=== PATIENT | female | born 1950 | race Caucasian/White ===

== ENCOUNTER 2019-01-15 04:41 | Observation (INO) | payer MEDICARE, OTHER ==
[2019-01-15] MEDS ORDERED: Sodium Chloride 0.9% 10 ML Syringe FLUSH PRN (04:56)
[2019-01-15] MEDS ORDERED: Sodium Chloride 0.9% 2.5 ML Syringe FLUSH PRN (04:56)
[2019-01-15] MEDS ORDERED: Aspirin 81 MG Tab.Chew PO ONE (05:02)
--- NOTE | 2019-01-15 05:07 | EDM.PDOC ---
ED HPI GENERAL MEDICAL PROBLEM - General Chief Complaint: Chest Pain Stated Complaint: CHEST PAIN Time Seen by Provider: 01/15/19 04:55 - History of Present Illness INITIAL COMMENTS - FREE TEXT/NARRATIVE: HISTORY AND PHYSICAL: History of present illness: The patient is a 68-year-old female with no significant past medical history who presents with complaints of episodic sternal chest pain and discomfort for which she has had many months and has been following with a physical therapist at [facility] and receiving treatment there for noncardiac chest pain/ costochondral pain. The patient says that she gets this discomfort quite frequently and she usually just works with the physical therapist and treated symptomatically but this morning he felt somewhat different and radiated to her left arm and her back. The patient says she has a normal day yesterday and has had no upper respiratory symptoms or GI symptoms and slept fine. She will this morning and felt very good and started having the discomfort and she thought it was just her typical pain. It then seemed to be very different in character with the radiation but there was no diaphoresis nausea vomiting abdominal pain or shortness of breath. She did not do anything significant yesterday as far stressful activities or have any recent trauma. The patient did not take any medications prior to coming here. The patient has no significant cardiac history and has no social history. The patient did have a workup including a stress test in 2013 which revealed no evidence of any acute ischemia and ejection fraction of 81%. She has not been evaluated from a cardiac standpoint since that time. She has no leg pain or swelling. She is currently describing her pain as a pressure-like sensation and rates it as a 7/10 Review of systems: As per history of present illness and below otherwise all systems reviewed and negative. Past medical history: As per history of present illness and as reviewed below otherwise noncontributory. Surgical history: As per history of present illness and as reviewed below otherwise noncontributory. Social history: No reported history of drug or alcohol abuse. Family history: As per history of present illness and as reviewed below otherwise noncontributory. Physical exam: General: Well-developed well-nourished thin female who is nontoxic and vital signs are noted by me HEENT: Atraumatic, normocephalic, negative for conjunctival pallor or scleral icterus, mucous membranes moist, throat clear, neck supple, nontender, trachea midline. Lungs: Clear to auscultation, breath sounds equal bilaterally, chest wall near the sternum has some mild discomfort but the patient says that that is not the discomfort she is experiencing but that is her more chronic level of chest pain. There are no defects or deformities appreciated Heart: S1S2, regular, negative for clicks, rubs, or JVD. Abdomen: Soft, nondistended, nontender. Negative for masses or hepatosplenomegaly. NABS Pelvis: Stable nontender. Genitourinary: Deferred. Rectal: Deferred. Extremities: Atraumatic, negative for cords or calf pain. Neurovascular unremarkable. No pedal edema or leg asymmetry Neuro: Awake, alert, oriented. Cranial nerves II through XII unremarkable. Cerebellum unremarkable. Motor and sensory unremarkable throughout. Exam nonfocal. Diagnostics: EKG chest x-ray CBC CMP INR troponin amylase and lipase Therapeutics: IV O2 monitor IV fluids aspirin nitroglycerin sublingual Toradol After the patient received 2 subungual nitroglycerin she says that the pain actually feels worse and she would like to not receive any more nitroglycerin or Nitropaste. Her is at bedside who had an admission here for cardiac chest pain with the first 2 enzymes being negative and then his third bumped and had a be transferred. He seemed to both be very knowledgeable about the troponins. She and her are aware of her completely normal tests including the troponin. I've offered her morphine and she declines that she will take some Toradol. She is agreeable to observation admission though. 0547: Case was discussed with Dr. Cameron who is aware of the course of events here and the care plan instituted and agrees to observation admission. Impression: chest pain rule out ACS Definitive disposition and diagnosis as appropriate pending reevaluation and review of above. Chest Pain Score (Numeric/FACES): 4 - Related Data Allergies Allergy/AdvReac Type Severity Reaction Status Date / Time Sulfa (Sulfonamide Allergy Cannot Verified 01/15/19 04:59 Antibiotics) Remember Home Meds: Home Meds . [No Known Home Meds] 01/15/19 [History] Past Medical History - Past Health History Medical/Surgical History: Denies Medical/Surgical History - Infectious Disease History Infectious Disease History: Reports: Chicken Pox, Measles, Mumps - Past Surgical History Musculoskeletal Surgical History: Reports: Arthroscopic Knee Social & Family History - Tobacco Use Smoking Status *Q: Never Smoker - Caffeine Use Caffeine Use: Reports: None - Recreational Drug Use Recreational Drug Use: No ED ROS GENERAL - Review of Systems Review Of Systems: ROS reveals no pertinent complaints other than HPI. ED EXAM, GENERAL - Physical Exam Exam: See Below (See dictation) Course - Vital Signs Last Recorded V/S: Last Vital Signs Temp 35.8 C 01/15/19 04:55 Pulse 65 01/15/19 04:55 Resp 9 L 01/15/19 05:20 BP 108/75 01/15/19 05:25 Pulse Ox 97 01/15/19 05:20 - Orders/Labs/Meds Orders: Active Orders 24 hr Category Date Time Status Patient Status [ADT] Stat ADT 01/15/19 05:48 Ordered Cardiac Monitoring [RC] . DIRECTED Care 01/15/19 04:56 Active EKG Documentation Completion [RC] STAT Care 01/15/19 04:56 Active Oxygen Therapy, ED [RC] ASDIRECTED Care 01/15/19 04:56 Active Pulse Oximetry [RC] ASDIRECTED Care 01/15/19 04:56 Active Nitroglycerin [Nitrostat] Med 01/15/19 05:02 Active 0.4 mg SL Q5M PRN Sodium Chloride 0.9% [Normal Saline] 1,000 ml Med 01/15/19 05:15 Active IV ASDIRECTED Sodium Chloride 0.9% [Saline Flush] Med 01/15/19 04:56 Active 10 ml FLUSH ASDIRECTED PRN Sodium Chloride 0.9% [Saline Flush] Med 01/15/19 04:56 Active 2.5 ml FLUSH ASDIRECTED PRN Saline Lock Insert [OM.PC] Stat Oth 01/15/19 04:56 Ordered Medication Orders Sodium Chloride (Normal Saline) 1,000 mls @ 50 mls/hr IV ASDIRECTED EVER Last Admin: 01/15/19 05:10 Dose: 50 mls/hr Nitroglycerin (Nitrostat) 0.4 mg SL Q5M PRN PRN Reason: Chest Pain Last Admin: 01/15/19 05:25 Dose: 0.4 mg Admin: 01/15/19 05:12 Dose: 0.4 mg Sodium Chloride (Saline Flush) 10 ml FLUSH ASDIRECTED PRN PRN Reason: Keep Vein Open Last Admin: 01/15/19 05:11 Dose: 10 ml Sodium Chloride (Saline Flush) 2.5 ml FLUSH ASDIRECTED PRN PRN Reason: Keep Vein Open Last Admin: 01/15/19 05:11 Dose: 2.5 ml Labs: Laboratory Tests 01/15/19 01/15/19 01/15/19 Range/Units 04:45 04:45 04:45 WBC 4.50 (4.0-11.0) K/uL RBC 4.76 (4.30-5.90) M/uL Hgb 15.3 (12.0-16.0) g/dL Hct 44.8 (36.0-46.0) % MCV 94.1 (80.0-98.0) fL MCH 32.1 H (27.0-32.0) pg MCHC 34.2 (31.0-37.0) g/dL RDW Std Deviation 48.8 (28.0-62.0) fl RDW Coeff of [place] 14 (11.0-15.0) % Plt Count 180 (150-400) K/uL MPV 9.70 (7.40-12.00) fL Neut % (Auto) 44.6 L (48.0-80.0) % Lymph % (Auto) 42.4 H (16.0-40.0) % [place] % (Auto) 7.6 (0.0-15.0) % Eos % (Auto) 4.7 (0.0-7.0) % Baso % (Auto) 0.7 (0.0-1.5) % Neut # (Auto) 2.0 (1.4-5.7) K/uL Lymph # (Auto) 1.9 (0.6-2.4) K/uL [place] # (Auto) 0.3 (0.0-0.8) K/uL Eos # (Auto) 0.2 (0.0-0.7) K/uL Baso # (Auto) 0.0 (0.0-0.1) K/uL Nucleated RBC % 0.0 /100WBC Nucleated RBCs # 0 K/uL INR 0.98 Sodium 139 (136-145) mmol/L Potassium 3.7 (3.5-5.1) mmol/L Chloride 104 (98-107) mmol/L Carbon Dioxide 25.7 (21.0-32.0) mmol/L BUN 17 (7.0-18.0) mg/dL Creatinine 0.8 (0.6-1.0) mg/dL Est Cr Clr Drug Dosing 47.78 mL/min Estimated GFR (MDRD) > 60.0 ml/min Glucose 94 (74-106) mg/dL Calcium 9.2 (8.5-10.1) mg/dL Total Bilirubin 0.5 (0.2-1.0) mg/dL AST 17 (15-37) IU/L ALT 23 (14-63) IU/L Alkaline Phosphatase 90 (46-116) U/L Troponin I < 0.050 (0.000-0.056) ng/mL Total Protein 7.5 (6.4-8.2) g/dL Albumin 3.9 (3.4-5.0) g/dL Globulin 3.6 (2.6-4.0) g/dL Albumin/Globulin Ratio 1.1 (0.9-1.6) Amylase 78 (25-115) U/L Lipase 209 (73-393) U/L Meds: Medications Generic Name Dose Route Start Last Admin Trade Name Freq PRN Reason Stop Dose Admin Sodium Chloride 1,000 mls @ 50 mls/hr 01/15/19 05:15 01/15/19 05:10 Normal Saline IV 50 mls/hr ASDIRECTED EVER Administration Nitroglycerin 0.4 mg 01/15/19 05:02 01/15/19 05:25 Nitrostat SL 0.4 mg Q5M PRN Administration Chest Pain Sodium Chloride 10 ml 01/15/19 04:56 01/15/19 05:11 Saline Flush FLUSH 10 ml ASDIRECTED PRN Administration Keep Vein Open Sodium Chloride 2.5 ml 01/15/19 04:56 01/15/19 05:11 Saline Flush FLUSH 2.5 ml ASDIRECTED PRN Administration Keep Vein Open Discontinued Medications Generic Name Dose Route Start Last Admin Trade Name Freq PRN Reason Stop Dose Admin Aspirin 324 mg 01/15/19 05:02 01/15/19 05:10 Aspirin PO 01/15/19 05:03 324 mg ONETIME ONE Administration Ketorolac Tromethamine 30 mg 01/15/19 05:39 Toradol IVPUSH 01/15/19 05:40 ONETIME ONE Departure - Departure Time of Disposition: 05:49 Disposition: Refer to Observation Condition: Good Clinical Impression: Chest pain Qualifiers: Chest pain type: unspecified Qualified Code(s): R07.9 - Chest pain, unspecified - Discharge Information Referrals: Yadiel Maharaj MD [Primary Care Provider] - Forms: ED Department Discharge - My Orders Last 24 Hours: My Active Orders 01/15/19 04:56 Cardiac Monitoring [RC] . DIRECTED EKG Documentation Completion [RC] STAT Oxygen Therapy, ED [RC] ASDIRECTED Pulse Oximetry [RC] ASDIRECTED Sodium Chloride 0.9% [Saline Flush] 10 ml FLUSH ASDIRECTED PRN Sodium Chloride 0.9% [Saline Flush] 2.5 ml FLUSH ASDIRECTED PRN Saline Lock Insert [OM.PC] Stat 01/15/19 05:02 Nitroglycerin [Nitrostat] 0.4 mg SL Q5M PRN 01/15/19 05:15 Sodium Chloride 0.9% [Normal Saline] 1,000 ml IV ASDIRECTED 01/15/19 05:48 Patient Status [ADT] Stat - Assessment/Plan Last 24 Hours: My Active Orders 01/15/19 04:56 Cardiac Monitoring [RC] . DIRECTED EKG Documentation Completion [RC] STAT Oxygen Therapy, ED [RC] ASDIRECTED Pulse Oximetry [RC] ASDIRECTED Sodium Chloride 0.9% [Saline Flush] 10 ml FLUSH ASDIRECTED PRN Sodium Chloride 0.9% [Saline Flush] 2.5 ml FLUSH ASDIRECTED PRN Saline Lock Insert [OM.PC] Stat 01/15/19 05:02 Nitroglycerin [Nitrostat] 0.4 mg SL Q5M PRN 01/15/19 05:15 Sodium Chloride 0.9% [Normal Saline] 1,000 ml IV ASDIRECTED 01/15/19 05:48 Patient Status [ADT] Stat
[2019-01-15] MEDS: Nitroglycerin 0.4 MG Tab.SL SL PRN ×2 (05:12→05:25)
[2019-01-15] MEDS ORDERED: Sodium Chloride 0.9% 1,000 ML IV SCH (05:15)
--- NOTE | 2019-01-15 05:17 | CR ---
INDICATION: Chest pain TECHNIQUE: Chest 1 views COMPARISON: Chest x-ray 05/07/2014 FINDINGS: Cardiovascular and mediastinum: Heart size and vasculature are normal in caliber and appearance. Lungs and pleural spaces: Lungs are clear. No sign of infiltrate or mass. No sign of pleural effusion. No pneumothorax. Bones and soft tissues: No significant findings. IMPRESSION: No acute findings and no significant changes from the prior exam. Dictated by Elton Lee MD @ Jan 15 2019 5:14AM Signed by Dr. Elton Lee @ Jan 15 2019 5:15AM
[2019-01-15 05:27] LABS: CHLORIDE,CL 104 mmol/L (98-107); SODIUM,NA 139 mmol/L (136-145)
[2019-01-15] MEDS ORDERED: Ketorolac 30 MG/ML SDV IVPUSH ONE (05:39)
--- NOTE | 2019-01-15 07:59 | PCM.HP ---
H&P History of Present Illness - General Date of Service: 01/15/19 Admit Problem/Dx: Admission Diagnosis/Problem Admission Diagnosis/Problem Chest pain Source of Information: Patient - History of Present Illness Initial Comments - Free Text/Narative: This 68 year old female with no significant pmh presented to the ED with complaints of chest pain that radiated to her left arm and up her neck. She reports this pain started suddenly early this morning. She was sleeping. She reports it has a dull pain that worsens with palpation of her anterior chest and sternum. She reports this is a normal for her. It comes and goes intermittently and is actually seeing PT for this pain. She also uses CBD cream on her sternum which helps the pain. She reports taking Tylenol or NSAIDs hurt her stomach so she doesn't like them. At PT they are using exercises to help with pain as well as steroid cream with US to her chest. She came in this morning because the pain felt "different". She wasn't able to explain exactly how. She reports 4 weeks ago her was admitted and transferred due to chest pain and actually had an ME, so her stress level has been elevated slightly. She has no CAD history, takes no prescription medications. She denies tobacco use, rare alcohol use and no recreational drug use. She did have a stress test 5 years ago and she reports it was "perfect." In the ED labwork all WNL, troponin negative. EKG , VS stable. CXR unremarkable. She was given Nitro x2 which she reports didn't help at all and actually made her feel worse. She reports the Toradol helped her pain the most and actually took it away. She was admitted with chest pain, rule out ACS. Chest Pain Score (Numeric/FACES): 4 - Related Data Allergies/Adverse Reactions: Allergies Allergy/AdvReac Type Severity Reaction Status Date / Time Sulfa (Sulfonamide Allergy Cannot Verified 01/15/19 04:59 Antibiotics) Remember Home Medications: Home Meds . [No Known Home Meds] 01/15/19 [History] Past Medical History - Past Health History Medical/Surgical History: Denies Medical/Surgical History Cardiovascular History: Reports: None. Denies: Afib, Blood Clots/VTE/DVT, CAD, High Cholesterol, ME Respiratory History: Reports: None. Denies: Asthma, COPD Gastrointestinal History: Reports: None. Denies: GERD Genitourinary History: Reports: None. Denies: Chronic Renal Insuffiency Musculoskeletal History: Reports: Arthritis Neurological History: Reports: None. Denies: CVA, TIA Psychiatric History: Reports: None Endocrine/Metabolic History: Reports: None. Denies: Diabetes, Type II, Hypothyroidism, Obesity/BMI 30+ - Infectious Disease History Infectious Disease History: Reports: Chicken Pox, Measles, Mumps - Past Surgical History Cardiovascular Surgical History: Reports: None Respiratory Surgical History: Reports: None GI Surgical History: Reports: None Musculoskeletal Surgical History: Reports: Arthroscopic Knee Social & Family History - Family History Family Medical History: Noncontributory - Tobacco Use Smoking Status *Q: Never Smoker - Caffeine Use Caffeine Use: Reports: None - Alcohol Use Alcohol Use History: No - Recreational Drug Use Recreational Drug Use: No - Living Situation & Occupation Living situation: Reports: H&P Review of Systems - Review of Systems: Review Of Systems: See Below General: Denies: Fever, Chills, Malaise, Weakness HEENT: Denies: Headaches, Sinus Congestion, Sore Throat Pulmonary: Denies: Shortness of Breath, Wheezing, Pleuritic Chest Pain, Cough Cardiovascular: Reports: Chest Pain (with palpation of anterior chest wall. ). Denies: Palpitations, Edema Gastrointestinal: Reports: No Symptoms. Denies: Abdominal Pain, Black Stool, Bloody Stool, Nausea, Vomiting Genitourinary: Reports: No Symptoms. Denies: Dysuria, Frequency, Burning Musculoskeletal: Reports: Muscle Pain (anterior chest and sternum) Psychiatric: Reports: No Symptoms Neurological: Reports: No Symptoms Hematologic/Lymphatic: Reports: No Symptoms Immunologic: Reports: No Symptoms Exam - Exam Exam: See Below - Vital Signs Vital Signs: Last Vital Signs Temp 97.2 F 01/15/19 07:29 Pulse 59 L 01/15/19 07:29 Resp 15 01/15/19 07:29 BP 102/66 01/15/19 07:29 Pulse Ox 98 01/15/19 07:29 Weight: 45.6 kg - Exam General: Alert, Oriented, 4 HEENT: Conjunctiva Clear, Mucosa Moist & [place], Pupils Equal Neck: Supple, Trachea Midline Lungs: Clear to Auscultation, Normal Respiratory Effort GI/Abdominal Exam: Normal Bowel Sounds, Soft, Non-Tender Back Exam: Normal Inspection, Full Range of Motion. No: CVA Tenderness (L), CVA Tenderness (R) Extremities: Normal Inspection, Normal Range of Motion, Non-Tender, No Pedal Edema Neuro Extensive - Mental Status: Alert, Oriented x3, Normal Mood/Affect Psychiatric: Alert, Normal Affect, Normal Mood - Patient Data Lab Results Last 24 hrs: Laboratory Results - last 24 hr 01/15/19 01/15/19 01/15/19 Range/Units 04:45 04:45 04:45 WBC 4.50 (4.0-11.0) K/uL RBC 4.76 (4.30-5.90) M/uL Hgb 15.3 (12.0-16.0) g/dL Hct 44.8 (36.0-46.0) % MCV 94.1 (80.0-98.0) fL MCH 32.1 H (27.0-32.0) pg MCHC 34.2 (31.0-37.0) g/dL RDW Std Deviation 48.8 (28.0-62.0) fl RDW Coeff of [place] 14 (11.0-15.0) % Plt Count 180 (150-400) K/uL MPV 9.70 (7.40-12.00) fL Neut % (Auto) 44.6 L (48.0-80.0) % Lymph % (Auto) 42.4 H (16.0-40.0) % [place] % (Auto) 7.6 (0.0-15.0) % Eos % (Auto) 4.7 (0.0-7.0) % Baso % (Auto) 0.7 (0.0-1.5) % Neut # (Auto) 2.0 (1.4-5.7) K/uL Lymph # (Auto) 1.9 (0.6-2.4) K/uL [place] # (Auto) 0.3 (0.0-0.8) K/uL Eos # (Auto) 0.2 (0.0-0.7) K/uL Baso # (Auto) 0.0 (0.0-0.1) K/uL Nucleated RBC % 0.0 /100WBC Nucleated RBCs # 0 K/uL INR 0.98 Sodium 139 (136-145) mmol/L Potassium 3.7 (3.5-5.1) mmol/L Chloride 104 (98-107) mmol/L Carbon Dioxide 25.7 (21.0-32.0) mmol/L BUN 17 (7.0-18.0) mg/dL Creatinine 0.8 (0.6-1.0) mg/dL Est Cr Clr Drug Dosing 47.78 mL/min Estimated GFR (MDRD) > 60.0 ml/min Glucose 94 (74-106) mg/dL Calcium 9.2 (8.5-10.1) mg/dL Total Bilirubin 0.5 (0.2-1.0) mg/dL AST 17 (15-37) IU/L ALT 23 (14-63) IU/L Alkaline Phosphatase 90 (46-116) U/L Troponin I < 0.050 (0.000-0.056) ng/mL Total Protein 7.5 (6.4-8.2) g/dL Albumin 3.9 (3.4-5.0) g/dL Globulin 3.6 (2.6-4.0) g/dL Albumin/Globulin Ratio 1.1 (0.9-1.6) Amylase 78 (25-115) U/L Lipase 209 (73-393) U/L Result Diagrams: 01/15/19 04:45 01/15/19 04:45 EKG INTERPRETATION EKG Date: 01/15/19 Rhythm: NSR Rate (Beats/Min): 70 P-Wave: Present QRS: Normal ST-T: Normal QT: Normal *Q Meaningful Use (ADM) - VTE Risk Assess *Q Each Risk Factor Represents 1 Point: None Total Score 1 Point Risk Factors: 0 Each Risk Factor Represents 2 Points: Age 60 - 74 Years Total Score 2 Point Risk Factors: 2 Each Risk Factor Represents 3 Points: None Total Score 3 Point Risk Factors: 0 Each Risk Factor Represents 5 Points: None Total Score 5 Point Risk Factors: 0 Venous Thromboembolism Risk Factor Score *Q: 2 - Problem List (1) Chest pain SNOMED Code(s): 16924940 ICD Code: R07.9 - CHEST PAIN, UNSPECIFIED Status: Acute Current Visit: No Problem List Initiated/Reviewed/Updated: Yes Orders Last 24hrs: Active Orders 24 hr Category Date Time Status Patient Status [ADT] Stat ADT 01/15/19 05:48 Active Cardiac Monitoring [RC] . DIRECTED Care 01/15/19 04:56 Active EKG Documentation Completion [RC] STAT Care 01/15/19 04:56 Active Oxygen Therapy, ED [RC] ASDIRECTED Care 01/15/19 04:56 Active Pulse Oximetry [RC] ASDIRECTED Care 01/15/19 04:56 Active Regular Diet [DIET] Diet 01/15/19 Breakfast Active GLYCOSYLATED HEMOGLOBIN,HGBA1C [CHEM] Routine Lab 01/15/19 07:59 Ordered LIPID PANEL [CHEM] Routine Lab 01/15/19 07:59 Ordered TROPONIN I [CHEM] Q6H Lab 01/15/19 10:45 Ordered TROPONIN I [CHEM] Q6H Lab 01/15/19 16:45 Ordered Nitroglycerin [Nitrostat] Med 01/15/19 05:02 Active 0.4 mg SL Q5M PRN Sodium Chloride 0.9% [Normal Saline] 1,000 ml Med 01/15/19 05:15 Active IV ASDIRECTED Sodium Chloride 0.9% [Saline Flush] Med 01/15/19 04:56 Active 10 ml FLUSH ASDIRECTED PRN Sodium Chloride 0.9% [Saline Flush] Med 01/15/19 04:56 Active 2.5 ml FLUSH ASDIRECTED PRN Saline Lock Insert [OM.PC] Stat Oth 01/15/19 04:56 Ordered Medication Orders Sodium Chloride (Normal Saline) 1,000 mls @ 50 mls/hr IV ASDIRECTED EVER Last Admin: 01/15/19 05:10 Dose: 50 mls/hr Nitroglycerin (Nitrostat) 0.4 mg SL Q5M PRN PRN Reason: Chest Pain Last Admin: 01/15/19 05:25 Dose: 0.4 mg Admin: 01/15/19 05:12 Dose: 0.4 mg Sodium Chloride (Saline Flush) 10 ml FLUSH ASDIRECTED PRN PRN Reason: Keep Vein Open Last Admin: 01/15/19 05:11 Dose: 10 ml Sodium Chloride (Saline Flush) 2.5 ml FLUSH ASDIRECTED PRN PRN Reason: Keep Vein Open Last Admin: 01/15/19 05:11 Dose: 2.5 ml Assessment/Plan Comment:: This 68 year old female admitted with chest pain 1. Chest pain: A1c WNL, Cholesterol 238, LDL 141, HDL 85 and Triglycerides 85, low cardiac risk. Will trend troponins and monitor on telemetry today. She reports pain is better. She would like to leave this evening after troponins are all obtained. She is agreeable to follow up with PCP and obtained an outpatient stress test to further evaluate heart. Discharge Plan: All troponins returned negative. No further chest pain, just her usual sternal achiness. Pain likely secondary to arthritis vs costochondritis. She will be discharged home this evening. She will follow up with PCP and will have an outpatient stress test. She is to return to the ED or clinic if concerns should arise.
[2019-01-15] MEDS ORDERED: Ketorolac 15 MG/ML SDV IVPUSH ONE (10:19)
[2019-01-15] MEDS ORDERED: Acetaminophen 325 MG Tab PO PRN (11:26)
[2019-01-15 16:13] VITALS: BP 105/74
== END 2019-01-15 18:50 | disposition home or self-care (01) ==
LOC: MW.ED 04:41 → MW.MS 05:48
PROVIDERS: ADMIT Internal Medicine; ATTEND Internal Medicine
DX: R07.89 Other chest pain (principal); Z88.2 Allergy status to sulfonamides
CPT/HCPCS: 36415; 71045; 80053; 80061; 82150; 83036; 83690; 84484; 85025; 85610; 93005; 96361; 96374; 99285; A9270; J1885; J7040; 96360; 99284

== ENCOUNTER 2021-05-01 06:44 | Emergency (ER) | payer MEDICARE, OTHER ==
[2021-05-01] MEDS ORDERED: Ibuprofen 400 MG Tab PO ONE (07:22)
[2021-05-01] MEDS: Acetaminophen/Codeine 300-30 MG Tab PO ONE ×2 (07:28→07:44)
--- NOTE | 2021-05-01 07:38 | EDM.PDOC ---
ED HPI GENERAL MEDICAL PROBLEM - General Chief Complaint: Skin Complaint Stated Complaint: PAIN ON RIGHT SIDE AND RASH Time Seen by Provider: 05/01/21 07:12 Source of Information: Reports: Patient - History of Present Illness INITIAL COMMENTS - FREE TEXT/NARRATIVE: 70-year-old female presents to the emergency department complaining of back pain. Patient states that she was trying to put cucumbers in the refrigerator that were too heavy for her and she fell back on her heels and developed pain to the right side of her back rating down to her knee. No bowel or bladder dysfunction or leg weakness. No history of cancer. Patient then starting over this past day a rash on the right side of her back and leg. No fevers. Is worse with movement. right upper leg Pain Score (Numeric/FACES): 6 - Related Data Allergies Allergy/AdvReac Type Severity Reaction Status Date / Time Sulfa (Sulfonamide Allergy Cannot Verified 05/01/21 06:58 Antibiotics) Remember Home Meds: Home Meds Acetaminophen with Codeine [Acetaminophen-Cod #2] 1 each PO Q12HR PRN #18 tablet 05/01/21 [Rx] valACYclovir HCl [valACYclovir] 1,000 mg PO TID #21 tablet 05/01/21 [Rx] Past Medical History - Past Health History Medical/Surgical History: Denies Medical/Surgical History HEENT History: Reports: None Cardiovascular History: Reports: None Respiratory History: Reports: None Gastrointestinal History: Reports: None Genitourinary History: Reports: None RESPITE COORDINATOR History: Reports: None Musculoskeletal History: Reports: Arthritis Neurological History: Reports: None Psychiatric History: Reports: None Endocrine/Metabolic History: Reports: None Insulin Pump Model and School Physical Therapist: None Hematologic History: Reports: None Immunologic History: Reports: None Oncologic (Cancer) History: Reports: None Dermatologic History: Reports: None - Infectious Disease History Infectious Disease History: Reports: Chicken Pox, Measles, Mumps - Past Surgical History Head Surgeries/Procedures: Reports: None HEENT Surgical History: Reports: Cataract Surgery, Eye Surgery Cardiovascular Surgical History: Reports: None Respiratory Surgical History: Reports: None GI Surgical History: Reports: None Musculoskeletal Surgical History: Reports: Arthroscopic Knee Social & Family History - Family History Family Medical History: No Pertinent Family History - Caffeine Use Caffeine Use: Reports: None - Recreational Drug Use Recreational Drug Use: No - Living Situation & Occupation Living situation: Reports: ED ROS GENERAL - Review of Systems Review Of Systems: See Below Constitutional: Denies: Fever Respiratory: Denies: Shortness of Breath GI/Abdominal: Reports: Other (Some constipation and pain in the rectal area when pooping). Denies: Abdominal Pain : Denies: Dysuria Musculoskeletal: Reports: Back Pain Skin: Denies: Rash Neurological: Denies: Numbness, Weakness ED EXAM, SKIN/RASH Exam: See Below Text/Narrative:: CONSTITUTIONAL: well appearing in no acute distress SKIN: dry, and intact without rash there is a vesicular rash midline radiating around the right side of the back and proximal thigh consistent with shingles HENT: Normocephalic, atraumatic, NECK: normal range of motion Abdomen: Soft nontender nondistended. No pulsatile abdominal mass PULMONARY: normal chest rise and fall, no respiratory distress or stridor NEUROLOGIC: normal speech light touch and 5 out of 5 power bilateral: Symmetric in lower extremities without deficit. MUSCULOSKELETAL: no gross deformities, atraumatic. Mild lumbar midline tenderness PSYCHIATRIC: normal mood and affect Course - Vital Signs Text/Narrative:: Differential diagnosis: Shingles, osteoarthritis, radiculopathy, AAA, herniated disc, spinal cord compression, other Patient presents as outlined above. Patient has overt shingles to the right lower back radiating around her leg and will be given pain medication and valacyclovir. Patient is also concerned about back pain that may or may not be attributed to the skin rash. She does describe an incident that could be consistent with musculoskeletal type injury with or without disc herniation or radiculopathy. As such patient will also be given a course of NSAIDs with return precautions Last Recorded V/S: Last Vital Signs Temp 36.8 C 05/01/21 09:45 Pulse 68 05/01/21 09:45 Resp 14 05/01/21 09:45 BP 106/62 05/01/21 09:45 Pulse Ox 96 05/01/21 09:45 - Orders/Labs/Meds Meds: Medications Discontinued Medications Generic Name Dose Route Start Last Admin Trade Name Freq PRN Reason Stop Dose Admin Acetaminophen/Codeine Phosphate 1 tab 05/01/21 07:23 05/01/21 07:44 Acetaminophen/Codeine 300-30 Mg Tab PO 05/01/21 07:24 Not Given ONETIME ONE Acetaminophen/Codeine Phosphate 15 ml 05/01/21 07:40 05/01/21 07:44 Acetaminophen/Codeine 120-12 Mg/5 Ml Soln 5 Ml Ud Cup PO 05/01/21 07:41 15 ml ONETIME ONE Administration Ibuprofen 400 mg 05/01/21 07:22 05/01/21 07:29 Ibuprofen 400 Mg Tab PO 05/01/21 07:23 400 mg ONETIME ONE Administration Valacyclovir HCl 1,000 mg 05/01/21 09:00 05/01/21 07:52 Valacyclovir 500 Mg Tab PO 1,000 mg DAILY EVER Administration Valacyclovir HCl Confirm 05/01/21 07:35 05/01/21 07:51 Valacyclovir 500 Mg Tab Administered 05/01/21 07:36 Not Given Dose 1,000 mg .ROUTE .STK-MED ONE Departure - Departure Time of Disposition: :20 Disposition: Home, Self-Care 01 Condition: Good Clinical Impression: Zoster - Discharge Information Prescriptions: Acetaminophen with Codeine [Acetaminophen-Cod #2] 1 each PO Q12HR PRN #18 tablet PRN Reason: Pain (Moderate 4-6) valACYclovir HCl [valACYclovir] 1,000 mg PO TID #21 tablet Instructions: Shingles Referrals: Yadiel Maharaj MD [Primary Care Provider] - Forms: ED Department Discharge Additional Instructions: Return for fevers, abdominal pain, loss of control of bowel movements or urination, leg weakness, any your worsening condition or lack of improvement. Follow-up with your primary care doctor early next week. Take medications as prescribed. In addition take [id number] ibuprofen 400 mg 3 times a day for 1 week for pain and inflammation The following information is given to patients seen in the emergency department who are being discharged to home. This information is to outline your options for follow-up care. We provide all patients seen in our emergency department with a follow-up referral. The need for follow-up, as well as the timing and circumstances, are variable depending upon the specifics of your emergency department visit. If you don't have a primary care physician on staff, we will provide you with a referral. We always advise you to contact your personal physician following an emergency department visit to inform them of the circumstance of the visit and for follow-up with them and/or the need for any referrals to a consulting specialist. The emergency department will also refer you to a specialist when appropriate. This referral assures that you have the opportunity for follow-up care with a specialist. All of these measure are taken in an effort to provide you with optimal care, which includes your follow-up. Primary care clinics in the area: [facility] [address] [place] [id number] [facility] [address] [place] [id number] Under all circumstances we always encourage you to contact your private physician who remains a resource for coordinating your care. When calling for follow-up care, please make the office aware that this follow-up is from your recent emergency room visit. If for any reason you are refused follow-up, please contact the Emergency Department at and asked to speak to the emergency department charge nurse. Sepsis Event Note (ED) - Focused Exam Vital Signs: Vital Signs Temp Pulse Resp BP Pulse Ox 05/01/21 09:45 36.8 C 68 14 106/62 96 05/01/21 09:30 63 104/60 96 05/01/21 09:00 73 94/55 L 98 05/01/21 08:30 65 98/58 L 96 05/01/21 08:00 74 98 05/01/21 06:55 36.6 C 80 18 128/75 97
[2021-05-01] MEDS ORDERED: Acetaminophen/Codeine 120-12 MG/5 ML Soln 5 ML UD Cup PO ONE (07:40)
[2021-05-01] MEDS: valACYclovir 500 MG Tab ONE ×2 (07:44→07:51)
--- NOTE | 2021-05-01 08:21 | CR ---
HISTORY: Fall. COMPARISON: None. TECHNIQUE: Lumbar spine, 3 views. FINDINGS: Five lumbar type vertebral bodies are demonstrated on this exam. Preservation of normal lumbar lordosis. There is no acute fracture. There is no malalignment. Degenerative calcific plaque in the abdominal aorta. No soft tissue mass by plain film. There is no suspicious calcification. Lung bases are clear. IMPRESSION: No acute fracture or malalignment in the lumbar spine. Dictated by Tomi Perez MD @ 05/01/2021 8:20:[address] Tomi Perez @ May 01 2021 8:20AM
[2021-05-01] MEDS ORDERED: valACYclovir 500 MG Tab PO SCH (09:00)
[2021-05-01 09:46] VITALS: BP 106/62; PULSE 68
== END 2021-05-01 09:49 | disposition home or self-care (01) ==
LOC: MW.ED 06:44
DX: B02.9 Zoster without complications (principal); Z88.2 Allergy status to sulfonamides
CPT/HCPCS: 72100; 99283; A9270